=== PATIENT | female | born 1930 | race Caucasian/White ===

== ENCOUNTER 2018-02-24 15:18 | Inpatient (IN) | payer MEDICARE, MEDICAID ==
--- NOTE | 2018-02-24 16:21 | ED Physician Chart ---
ED Chief Complaint/HPI - Patient Information Date Seen:: 02/24/18 Time Seen:: 15:40 Chief Complaint:: Depression History of Present Illness:: onset x 3 days of decreased activity and depressed behvior; pt denies trauma, SIs, H/As, S/T, neck pain, C/P, cough, SOB, Abd. Pain, A/N/V/D/C, fever, chills , or urinary s/s Allergies:: Allergies Allergy/AdvReac Type Severity Reaction Status Date / Time No Known Allergies Allergy Verified 02/24/18 15:40 Vitals:: Vital Signs - 8 hr 02/24/18 15:40 Temp 97.8 F HR 71 RR 19 BP 166/68 O2 Sat % 95 Historian:: Patient, EMS Review:: Nurse's Note Reviewed, Old Chart Reviewed, EMS run form Reviewed ED Review of Systems - Review of Systems General/Constitutional: No fever, No chills, No weight loss, No weakness, No diaphoresis, No edema, No loss of appetite Skin: No skin lesions, No rash, No bruising Head: No headache, No light-headedness Eyes: No loss of vision, No pain, No diplopia ENT: No earache, No nasal drainage, No sore throat, No tinnitus Neck: No neck pain, No swelling, No thyromegaly, No stiffness, No mass noted Cardio Vascular: No chest pain, No palpitations, No PND, No orthopnea, No edema Pulmonary: No SOB, No cough, No sputum, No wheezing GI: No nausea, No vomiting, No diarrhea, No pain, No melena, No hematochezia, No constipation, No hematemesis G/U: No dysuria, No frequency, No hematuria, No nacturia Aitchbone Breaker: No vaginal discharge, No abnormal vaginal bleed, No contraction Musculoskeletal: No bone or joint pain, No back pain, No muscle pain Endocrine: No polyuria, No polydipsia Psychiatric: Prior psych history, Depression, No anxiety, No suicidal ideation, No homicidal ideation, No auditory hallucination, No visual hallucination Hematopoietic: No bruising, No lymphadenopathy Allergic/Immuno: No urticaria, No angioedema Neurological: No syncope, No focal symptoms, No weakness, No paresthesia, No headache, No seizure, No dizziness, Confusion, No vertigo ED Past Medical History - Past Medical History Obtainable: Yes Past Medical History: HTN, Arthritis, Dementia Family History: HTN Social History: Non Smoker, No Alcohol, No Drug Use, Single, Care Facility Surgical History: None Psychiatricy History: Depression, Dementia Medication: Reviewed Family Medical History - Family Member Mother History Unknown: Yes ED Physical Exam - Physical Examination General/Constitutional: Awake, Well-developed, well-nourished, Alert, No distress, GCS 15, Non-toxic appearing, Ambulatory Head: Atraumatic Eyes: Lids, conjuctiva normal, PERRL, EOMI Skin: Nl inspection, No rash, No skin lesions, No ecchymosis, Well hydrated, No lymphadenopathy ENMT: External ears, nose nl, TM canals nl, Nasal exam nl, Lips, teeth, gums nl , Oropharynx nl, Tonsils nl Neck: Nontender, Full ROM w/o pain, No JVD, No nuchal rigidity, No bruit, No mass, No stridor Respiratory: Nl effort/Exclusion, Clear to Auscultation, No Wheeze/Rhonchi/Rales Cardio Vascular: RRR, No murmur, gallop, rubs, NL S1 S2, Carotid/Femoral/Distal pulses equal bilaterally GI: No tenderness/rebounding/guarding, No organomegaly, No hernia, Normal BS's, Nondistended, No mass/bruits, No McBurney tenderness : No CVA tenderness Extremities: No tenderness or effusion, Full ROM, normal strength in all extremities, No edema, Normal digits & nails Neuro/Psych: Alert/oriented, DTR's symmetric, Normal sensory exam, Normal motor strength, Judgement/insight normal, Mood normal, Normal gait, No focal deficits Other Neuro/Psych comments:: + Psychomotor Retardation; no SIs; Mood/Affect: Labile Misc: Normal back, No paraspinal tenderness ED Labs/Radiology/EKG Results - Lab Results Comments:: unremarkable - EKG Interpretations EKG Time:: 16:05 Rate & Rhythm: 76; NSR Comments:: old ASMI; non-specific st-t changes ED Septic Shock - . Is Septic Shock (SBP<90, OR Lactate>4 mmol\L) present?: No - <6hrs of presentation: Vital Signs: Vital Signs - 8 hr 02/24/18 15:40 Temp 97.8 F HR 71 RR 19 BP 166/68 O2 Sat % 95 ED Reassessment (Disposition) - Reassessment Reassessment Condition:: Improved - Diagnosis Diagnosis:: Dx: Depression; Medical Clearance - Aftercare/Follow up Instructions Aftercare/Follow-Up Instructions:: Counseled pt regarding lab results/diagnosis & need follow up, Counseled pt & family regarding lab results/diagnosis & need follow up - Patient Disposition Discharge/Transfer:: Acute Care w/in this hosp Admitted to:: [facility] Condition at Disposition:: Stable, Improved
[2018-02-24 16:28] LABS: % BASOPHILS 1.4 % (0.0-2.0); % MONOCYTES 7.3 % (2.0-10.0); % NEUTROPHILS 67.3 % (40.0-80.0); BASOPHILE ABSOLUTE 0.1 Th/cumm (0-0.2); EOSINOPHILE ABSOLUTE 0.2 Th/cmm (0.1-0.4); LYMPHOCYTE ABSOLUTE 1.3 Th/cmm (1.5-3.0); MEAN CELL VOLUME 89.4 fl (81-100); MEAN CORPUSCULAR HEMOGLOBIN 29.9 pg (27.0-31.0); MEAN CORPUSCULAR HGB CONC 33.4 pg (28.0-36.0); MEAN PLATELET VOLUME 9.3 fl; MONOCYTE ABSOLUTE 0.5 Th/cmm (0.3-1.0); NEUTROPHILE ABSOLUTE 4.3 Th/cmm (1.8-8.0); PLATELET COUNT 193 Th/cmm (150-400); RED BLOOD COUNT 4.36 Mil/cmm (3.80-5.20); RED CELL DISTRIBUTION WIDTH 13.1 % (11.5-20.0); WHITE BLOOD COUNT 6.4 Th/cmm (4.8-10.8)
[2018-02-24 16:48] LABS: ALB/GLOB RATIO 1.2 (1.0-1.8); ALBUMIN 3.9 gm/dL (3.7-5.3); ALKALINE PHOSPHATASE 57 U/L (34-104); BILIRUBIN,TOTAL 0.4 mg/dL (0.3-1.0); BUN - UREA NITROGEN 22 mg/dL (7-25); CALCIUM SERUM 9.8 mg/dL (8.6-10.3); CARBON DIOXIDE 28.8 mEq/L (21.0-31.0); CHLORIDE 104 mEq/L (98-107); CHOLESTEROL 143 mg/dL (<200); CREATININE - SERUM 0.8 mg/dL (0.6-1.2); GLUCOSE 101 mg/dL (70-105); HDL -HIGH DENSITY LIPOPROTEIN 60 mg/dL (23-92); POTASSIUM SERUM 3.8 mEq/L (3.5-5.1); SGOT 13 U/L (13-39); SGPT/ALT 7 U/L (7-52); SODIUM SERUM 140 mEq/L (136-145); TOTAL PROTEIN,SERUM 7.1 gm/dL (6.0-8.3); TRIGLYCERIDES 91 mg/dL (<150)
[2018-02-24 16:55] LABS: ACETAMINOPHEN < 10.0 ug/mL (10.0-30.0); SALICYLATES (ASPIRIN) < 25.0 mg/L (30.0-100.0)
[2018-02-24] MEDS ORDERED: Magnesium Hydroxide (MOM) 30 mL UDC PO PRN (17:55)
[2018-02-24] MEDS ORDERED: Guaifenesin DM 10 ML UDC PO PRN (17:55)
[2018-02-24 18:05] VITALS: BP 152/74
[2018-02-24 19:22] LABS: A1C % 6.3 % (4.0-6.0)
[2018-02-25] MEDS: Levothyroxine 0.075 Mg Tab PO SCH (06:45)
[2018-02-25] MEDS ORDERED: Ferrous Sulfate 325 MG TAB PO SCH (09:00)
[2018-02-25] MEDS: Multivitamin Tab PO SCH (09:37)
[2018-02-25] MEDS: Multivitamin w/ Minerals Tab PO SCH (09:37)
[2018-02-25] MEDS: Aspirin 81mg Chewable Tab PO SCH (09:37)
[2018-02-25] MEDS: Atorvastatin Calcium 10 MG TAB PO SCH (09:37)
--- NOTE | 2018-02-25 10:19 | History & Physical ---
ADMIT DATE: 02/25/2018 PATIENT'S IDENTIFICATION: An 87-year-old female. Requesting physician for this H and P is Dr. Ellison. CHIEF COMPLAINT: "My daughter brought me here." HISTORY OF PRESENT ILLNESS: An 87-year-old female who resides at a [facility] has a diagnosis of hypertension, hyperlipidemia, hypothyroidism, history of dementia, noted by nursing staff that the patient was having period of confusion and increasing lethargy and feeling of hopeless and depressed. The patient has been followed by Dr. Carvalho as well as Dr. Ellison at [facility]. The patient was sent to Emergency Room for further evaluation. After being evaluated by Emergency Room MD, the patient is now being admitted to the hospital for further treatment. PAST MEDICAL HISTORY: Remarkable for: 1. Hypertension. 2. Hyperlipidemia. 3. DJD. 4. Osteoporosis. 5. Hypothyroidism. 6. Osteoporosis. 7. Dementia. 8. Chronic constipation. MEDICATIONS AT HOME: Vitamin C, Tylenol, tramadol, Senna, Pepcid, milk of magnesia, multivitamin, amlodipine, aspirin, atorvastatin, Colace, vitamin B12, Dulcolax, Fleet, ferrous sulfate, hydralazine, levothyroxine. ALLERGIES: The patient is not allergic to medication. SOCIAL HISTORY: The patient lives currently in a alf. The patient had long-term history of smoking, but quit 25 years ago. No history of any alcohol or drug use. FAMILY MEDICAL HISTORY: Remarkable for hypertension. REVIEW OF SYSTEMS: The patient denies any headache, blurred vision, double vision, dysphagia, odynophagia, runny nose, stuffy nose, fever, chills, cough, chest pain, shortness of breath, palpitation, dizziness, nausea, vomiting, diarrhea, dysuria, hematuria, hematochezia, melena, no seizure or syncopal episode. PHYSICAL EXAMINATION: GENERAL: The patient is alert, awake, and answers some question appropriately without any acute distress. VITAL SIGNS: Temperature 99, pulse is 79, respiratory rate is 18, blood pressure 144/77. HEENT: Normocephalic, atraumatic. Extraocular muscles are intact. Bilateral intraocular lens ___ noted. Sclerae without any icterus. Tongue was pink and coated. Multiple absent teeth noted. No oral lesions noted. No sinus tenderness. External auditory canal debridements are well visualized. NECK: Supple, no JVD, no hepatojugular reflux. No lymphadenopathy, thyromegaly, or carotid bruit. HEART: Both heart sounds are regular. Grade 2/6 systolic murmur noted. CHEST: Lung equal in expansion, no wheezing, no crackles. ABDOMEN: Soft. No guarding, no rigidity. Liver and spleen not palpable. No palpable mass. EXTREMITIES: No edema. Peripheral are +1. No calf tenderness noted. Diffuse osteoarthritic changes noted. NEUROLOGIC: Alert, awake, follows command. Mini mental status examinations, patient scored only 10/30. No facial asymmetry noted. Power in upper or lower extremities 5-. Sensation to touch were significantly decreased and lower extremity reflex +2 throughout. Unable to do cerebellar sign. AVAILABLE DIAGNOSTIC DATA: Performed in the Emergency Room, hemoglobin is 13, white count of 6.4, platelet count of 193. Chemistry panels are within normal limit. Glycohemoglobin of 6.3. Liver functions are normal. Cholesterols are normal. Urine toxicology was unremarkable. CLINICAL IMPRESSION: 1. Increasing depression, anxiety with behavioral disturbances. 2. Dementia. 3. Hypertension. 4. Hyperlipidemia. 5. Degenerative joint disease. 6. Osteoporosis. 7. High risk for fall. 8. Gastritis. 9. Decline in self-care and mobility. PLAN: The patient is admitted by Dr. Ellison for psychiatric treatment at this time. The patient will be resumed on her medication for underlying medical illness, which include hypertension, hyperlipidemia, DJD, constipation, as well as GERD, and gastritis. The patient is currently on iron supplement. The patient has normal CBC. We will discontinue iron therapy for now. Fall precaution will be provided as well. General nursing care will be provided as well. We will continue to follow this patient during her stay in the hospital as well. I sincerely thank you, Dr. Ellison, for giving me the opportunity in participating in patient of yours. JOB# [id number]
--- NOTE | 2018-02-25 17:29 | Psychosocial Evaluation ---
DATE OF SERVICE: 02/25/2018 JUSTIFICATION FOR HOSPITALIZATION: Depressed, decreased activity. History of dementia. Concerns for her mood. CHIEF COMPLAINT: "I don't know why I am here." HISTORY OF PRESENT ILLNESS: An 87-year-old female with history of dementia, also depressed behaviors. Vegetative symptoms, decreased activity. The patient attest to depression, sadness. States she is here because "my granddaughter thought I was sick." Confusion noted. She states the year is 1979. She does not know the month or the day of the week. The patient noted to be withdrawn, not the best historian. PAST PSYCHIATRIC HISTORY: Noted dementia, depression. FAMILY HISTORY: Noncontributory. SOCIAL HISTORY: Born in [place]. She states she is . She currently resides at a [facility]. She states she has 3 children. No drugs, alcohol or tobacco. MEDICATIONS: Noted. MENTAL STATUS EXAMINATION: Friendly, calm, fair grooming, confusion noted, disorientation, attests to depression. No overt SI. No psychosis. Insight and judgment diminished. PROVISIONAL DIAGNOSES: Dementia. Also, major depression, recurrent, severe. MEDICAL: Please see full H and P. ESTIMATED LENGTH OF STAY: 5-6 days. ASSESSMENT: The patient is depressed or confused, melancholic withdrawn, sad, withdrawn, concerns about her current condition of depression. PLAN: We will reach out to family. TREATMENT PLAN: Includes group as well as milieu therapy. CONDITIONS FOR DISCHARGE: Improved mood, improved affect, better orientation. [facility]# [id number]
[2018-02-26] MEDS: Levothyroxine 0.075 Mg Tab PO SCH (06:47)
--- NOTE | 2018-02-26 09:13 | General Progress Note ---
Subjective - Review of Systems Subjective: Patient is seen and examined. patient denies chest pain,SOB,nausea,vomiting,headache,fever,chill,cough, seizure. Objective - Results Result Diagrams: 02/24/18 16:19 02/24/18 16: Recent Labs: Laboratory Last Values WBC 6.4 Th/cmm (4.8-10.8) 02/24/18 16: RBC 4.36 Mil/cmm (3.80-5.20) 02/24/18 16: Hgb 13.0 gm/dL (12-16) 02/24/18 16: Hct 39.0 % (41.0-60) L 02/24/18 16: MCV 89.4 fl (81-100) 02/24/18 16: MCH 29.9 pg (27.0-31.0) 02/24/18 16: MCHC Differential 33.4 pg (28.0-36.0) 02/24/18 16: RDW 13.1 % (11.5-20.0) 02/24/18 16: Plt Count 193 Th/cmm (150-400) 02/24/18 16: MPV 9.3 fl 02/24/18 16: Neutrophils % 67.3 % (40.0-80.0) 02/24/18 16: Lymphocytes % 21.0 % (20.0-50.0) 02/24/18 16: Monocytes % 7.3 % (2.0-10.0) 02/24/18 16: Eosinophils % 3.0 % (0.0-5.0) 02/24/18 16: Basophils % 1.4 % (0.0-2.0) 02/24/18 16:19 Sodium 140 mEq/L (136-145) 02/24/18 16:19 Potassium 3.8 mEq/L (3.5-5.1) 02/24/18 16: Chloride 104 mEq/L (98-107) 02/24/18 16:19 Carbon Dioxide 28.8 mEq/L (21.0-31.0) 02/24/18 16:19 Anion Gap 11.0 (7.0-16.0) 02/24/18 16:19 BUN 22 mg/dL (7-25) 02/24/18 16:19 Creatinine 0.8 mg/dL (0.6-1.2) 02/24/18 16:19 Est GFR ( Amer) TNP 02/24/18 16:19 Est GFR (Non-Af Amer) TNP 02/24/18 16:19 BUN/Creatinine Ratio 27.5 02/24/18 16:19 Glucose 101 mg/dL (70-105) 02/24/18 16:19 Hemoglobin A1c % 6.3 % (4.0-6.0) H 02/24/18 16:19 Calcium 9.8 mg/dL (8.6-10.3) 02/24/18 16:19 Total Bilirubin 0.4 mg/dL (0.3-1.0) 02/24/18 16:19 AST 13 U/L (13-39) 02/24/18 16:19 ALT 7 U/L (7-52) 02/24/18 16:19 Alkaline Phosphatase 57 U/L (34-104) 02/24/18 16:19 Total Protein 7.1 gm/dL (6.0-8.3) 02/24/18 16:19 Albumin 3.9 gm/dL (3.7-5.3) 02/24/18 16:19 Globulin 3.2 gm/dL 02/24/18 16:19 Albumin/Globulin Ratio 1.2 (1.0-1.8) 02/24/18 16:19 Triglycerides 91 mg/dL (<150) 02/24/18 16:19 Cholesterol 143 mg/dL (<200) 02/24/18 16:19 LDL Cholesterol Direct 66 mg/dL (75-193) L 02/24/18 16:19 HDL Cholesterol 60 mg/dL (23-92) 02/24/18 16:19 TSH 2.86 uIU/ml (0.34-5.60) 02/24/18 16:19 Salicylates < 25.0 mg/L (30.0-100.0) L 02/24/18 16:19 Acetaminophen < 10.0 ug/mL (10.0-30.0) L 02/24/18 16:19 Ethyl Alcohol < 10 mg/dL (0-10) 02/24/18 16:19 - Physical Exam Vitals and I&O: Vital Signs Temp 98 F 02/25/18 15:36 Pulse 68 02/25/18 16:47 Resp 20 02/25/18 15:36 BP 128/62 02/25/18 16:47 Pulse Ox 96 02/25/18 15:36 Active Medications: Current Medications Acetaminophen (Tylenol) 650 mg PO Q4HR PRN PRN Reason: Pain (Mild) Stop: 04/25/18 17:54 Amlodipine Besylate (Norvasc) 5 mg PO BID NOELLE Stop: 04/26/18 08:59 Last Admin: 02/25/18 16:47 Dose: 5 mg Ascorbic Acid (Vitamin C) 500 mg PO BID NOELLE Stop: 04/26/18 08:59 Last Admin: 02/25/18 16:47 Dose: 500 mg Aspirin (Aspirin Chewable) 81 mg PO DAILY NOELLE Stop: 04/26/18 08:59 Last Admin: 02/25/18 09:37 Dose: 81 mg Atorvastatin Calcium (Lipitor) 10 mg PO DAILY NOELLE PRN Reason: Protocol Stop: 04/26/18 08:59 Last Admin: 02/25/18 09:37 Dose: 10 mg Bisacodyl (Dulcolax 10 Mg Supp) 10 mg RC Q24H PRN PRN Reason: Constipation Stop: 04/25/18 17:54 Cyanocobalamin (Vitamin B12) 1,000 mcg PO DAILY [facility] Stop: 04/26/18 08:59 Last Admin: 02/25/18 09:37 Dose: 1,000 mcg Docusate Sodium (Colace) 100 mg PO BID NOELLE Stop: 04/26/18 08:59 Last Admin: 02/25/18 16:47 Dose: 100 mg Famotidine (Pepcid) 20 mg PO BID NOELLE Stop: 04/26/18 08:59 Guaifenesin/Dextromethorphan (Robitussin Dm) 10 ml PO Q6HR PRN PRN Reason: Cough Stop: 04/25/18 17:54 Hydralazine HCl (Apresoline) 10 mg PO Q6H PRN PRN Reason: HTN Stop: 04/25/18 17:54 Levothyroxine Sodium (Synthroid) 0.075 mg PO QDAC NOELLE Stop: 04/26/18 07:29 Last Admin: 04/20/18 06:47 Dose: 0.075 mg Lorazepam (Ativan) 0.5 mg PO Q4HR PRN; Protocol PRN Reason: Anxiety Stop: 03/26/18 18:01 Magnesium Hydroxide (Milk Of Magnesia) 30 ml PO Q24H PRN PRN Reason: Constipation Stop: 04/25/18 17:54 Multivitamins/Vitamin C (Theragran) 1 tab PO DAILY NOELLE Stop: 04/26/18 08:59 Last Admin: 02/25/18 09:37 Dose: 1 tab Senna (Senna) 8.6 mg PO BID NOELLE Stop: 04/26/18 08:59 Last Admin: 02/25/18 16:47 Dose: 8.6 mg Tramadol HCl (Ultram) 25 mg PO Q6H PRN PRN Reason: MOD/SEVERE PAIN Stop: 04/25/18 17:54 Zolpidem Tartrate (Ambien) 5 mg PO HS PRN PRN Reason: Insomnia Stop: 04/25/18 18:01 General: Alert, Cooperative, No acute distress HEENT: Atraumatic, PERRLA, EOMI Neck: Supple, JVD, Thyromegaly, +2 carotid pulse wo bruit Cardiovascular: Regular rate, Normal S1, Normal S2 Lungs: Clear to auscultation, Normal air movement Abdomen: Soft, Tender Extremities: Other (No edema,Diffuse DJD changes.) Neurological: Normal speech, Other (decrease power throughout.) Assessment/Plan - Problem List Patient Problems: All Active Problems DEPRESSION, CONFUSION (Acute) - Assessment Assessment: Hypertension. Hyperlipedemia. DJD. Osteoporosis. Gastritis. Psych disorder. Fall risk. Hypothyrodism. - Plan Plan: Monitor vitals and lab. Fall precautions. General nursing care. Statin. Synthroid. Anti HTN meds. Continue current care. Symptoms management medication management. discussed with staff.
[2018-02-26] MEDS: Multivitamin w/ Minerals Tab PO SCH (09:51)
[2018-02-26] MEDS: Aspirin 81mg Chewable Tab PO SCH (09:51)
[2018-02-26] MEDS: Multivitamin Tab PO SCH (09:52)
[2018-02-26] MEDS: Atorvastatin Calcium 10 MG TAB PO SCH (09:52)
--- NOTE | 2018-02-27 03:48 | Progress Notes ---
DATE: 02/26/2018 SUBJECTIVE: The patient is here due to depression. History of dementia. On [id number], the patient remains withdrawn, still depressed. She knows that she has bouts of depression and sadness. She notes she is feeling somewhat better, more optimistic. She feels that her granddaughter put her here, "She thought I was depressed, but I am not really depressed." However, she has been isolative. Concerns for depression. Vegetative symptoms. The patient engaged on exam, somewhat more sociable. Sleeping fairly well, eating fairly well. ADLs. Medications were noted. ASSESSMENT: The patient seems to be showing some improvement, more optimistic, more engaged. We will monitor and follow up. No SI. We will reach out the granddaughter today. [facility]# [id number]
[2018-02-27] MEDS: Levothyroxine 0.075 Mg Tab PO SCH (06:37)
[2018-02-27] MEDS: Multivitamin w/ Minerals Tab PO SCH (09:09)
[2018-02-27] MEDS: Atorvastatin Calcium 10 MG TAB PO SCH (09:09)
[2018-02-27] MEDS: Aspirin 81mg Chewable Tab PO SCH (09:09)
[2018-02-27] MEDS: Multivitamin Tab PO SCH (09:13)
--- NOTE | 2018-02-27 23:01 | Progress Notes ---
DATE: 02/27/2018 SUBJECTIVE: The patient seems to be in better spirits, more optimistic. No SI, no HI. She remained somewhat withdrawn, but states she is feeling "better". Sleeping well, eating well. I spoke with granddaughter yesterday she would like the patient transferred closer to her so that she can spend more time with the patient. The patient is depressed due to isolation, no family support nearby. ASSESSMENT: The patient is improving. No SI, no HI, better spirits. PLAN: internet project manager is working on a safe discharge plan. JOB# [id number]
[2018-02-28] MEDS: Levothyroxine 0.075 Mg Tab PO SCH (06:43)
[2018-02-28] MEDS: Aspirin 81mg Chewable Tab PO SCH (09:05)
[2018-02-28] MEDS: Atorvastatin Calcium 10 MG TAB PO SCH (09:05)
[2018-02-28] MEDS: Multivitamin Tab PO SCH (09:06)
[2018-02-28] MEDS: Multivitamin w/ Minerals Tab PO SCH (09:06)
--- NOTE | 2018-02-28 20:46 | Progress Notes ---
DATE: 02/28/2018 SUBJECTIVE: The patient in fair spirits. Sleeping well, eating well, getting along fairly well with staff and peers. No agitation, no escalation of behaviors. No distress noted. Mild disorientation noted, some forgetfulness. The patient is still grieving the loss of best friend and also sister. MEDICATIONS: Noted including doses and frequencies. The patient is eating well, sleeping well. ASSESSMENT: The patient seems to be improving, likely bereavement, granddaughter trying to get her closer to her home in [facility]. We will continue to monitor and follow up. No overt SI or HI, still with some bouts of sadness. JOB# [id number]
[2018-03-01] MEDS: Levothyroxine 0.075 Mg Tab PO SCH (07:06)
[2018-03-01] MEDS: Atorvastatin Calcium 10 MG TAB PO SCH (08:26)
[2018-03-01] MEDS: Aspirin 81mg Chewable Tab PO SCH (08:26)
[2018-03-01] MEDS: Multivitamin w/ Minerals Tab PO SCH (08:26)
[2018-03-01] MEDS: Multivitamin Tab PO SCH (08:26)
--- NOTE | 2018-03-01 10:53 | Progress Notes ---
DATE: 03/01/2018 The patient is in fair spirits, better oriented, allowing ADLs. No agitation. No escalation of behaviors. Still noted to be somewhat forgetful, but appropriate on exam. The patient is cooperative, allowing ADLs, wanting to leave soon. We are working hard on placement and I am in touch with granddaughter. Medications were noted. ASSESSMENT: The patient seems to be improving, calmer, more cooperative, no SI. PLAN: We will continue to monitor, continue to address any underlying depression. We will coordinate care with social work regarding safe discharge plan, good psychiatric followup. We will also try to confirm placement. JOB# [id number]
--- NOTE | 2018-03-02 00:08 | Progress Notes ---
DATE: 03/01/2018 IDENTIFICATION: An 87-year-old female. SUBJECTIVE: The patient was seen and examined. The patient is lying in the bed. Denies any chest pain, shortness of breath, palpitation, dizziness, nausea, vomiting. PHYSICAL EXAMINATION: VITAL SIGNS: Today's exam, temperature 97.5, pulse 84, respiratory rate 18, blood pressure 158/75. HEENT: No facial asymmetry. Poor dentition noted. NECK: Supple, no JVD. HEART: Both heart sounds are regular. CHEST: Lung equal in expansion. LUNGS: No wheezing, no crackles. ABDOMEN: Soft. No guarding, no rigidity. Bowel sounds are present. No palpable mass. EXTREMITIES: No edema. Diffuse osteoarthritic changes involving upper and lower extremity in major and minor joints noted. CLINICAL IMPRESSION: 1. Hypertension. 2. Hyperlipidemia. 3. Degenerative joint disease. 4. Osteoporosis. 5. Hypothyroidism. 6. Dementia. 7. Chronic constipation. 8. Gastritis. 9. Psychotic disorder. PLAN: 1. Psychotic evaluation and management defer to psychiatrist. 2. Continue her antihypertensive and statin medication for the hypertension and hyperlipidemia. 3. Fall precautions. 4. Pepcid. 5. General nursing care. 6. The patient is medically stable for psychiatric treatment at [facility]. JOB# [id number]
[2018-03-02] MEDS: Levothyroxine 0.075 Mg Tab PO SCH (06:32)
[2018-03-02] MEDS: Aspirin 81mg Chewable Tab PO SCH (09:06)
[2018-03-02] MEDS: Atorvastatin Calcium 10 MG TAB PO SCH (09:06)
[2018-03-02] MEDS: Multivitamin Tab PO SCH (09:08)
[2018-03-02] MEDS: Multivitamin w/ Minerals Tab PO SCH (09:08)
--- NOTE | 2018-03-02 19:39 | Discharge Summary ---
DATE OF DISCHARGE: 03/02/2018 JUSTIFICATION FOR HOSPITALIZATION: Depressed. History of dementia. HISTORY OF PRESENT ILLNESS: An 87-year-old female with history of dementia, depressed behaviors, decreased activity. The patient upset. Recent deaths in the family, is far away from granddaughter. PAST PSYCHIATRIC HISTORY: Dementia, depression. SOCIAL HISTORY: Born in [place]. Resides [place], 3 children. Granddaughter very involved. MENTAL STATUS EXAMINATION: Please see full psych eval for details. PROVISIONAL DIAGNOSES: Dementia, also major depression. MEDICAL: Please see full H and P. HOSPITAL COURSE: After initial assessment, the patient continued on medications, improved, more hopeful, more motivated, wants to live near granddaughter. Granddaughter making efforts to get closer to her. I spoke with the granddaughter over the phone. Over the course of the hospitalization, she improved, mood improved, affect improved, getting along well with staff and peers, some disorientation noted. No SI, more sociable and engaged. CONDITION ON DISCHARGE: Improved. Good ADLs, good eye contact. Speech within normal limits. Mood "better." Affect bright and broad. Thought processes were awake, alert, mild disorientation, but engaged, no SI, no HI. No psychosis. Better insight. PROVISIONAL DIAGNOSIS: Dementia per history. Also, major depression, recurrent, unspecified. MEDICAL: Please see full H and P. PROGNOSIS: The patient follows up with outpatient mental health services and eventually was closer to granddaughter. Prognosis will improve, otherwise guarded. [facility]# [id number]
== END 2018-03-02 17:00 | DRG 885 ==
LOC: ER 15:18 → GERO2 16:40
PROVIDERS: ADMIT Psychiatry & Neurology Psychiatry; ATTEND Psychiatry & Neurology Psychiatry
DX: F33.9 Major depressive disorder, recurrent, unspecified (principal); F03.91 Unspecified dementia, unspecified severity, with behavioral disturbance; K29.70 Gastritis, unspecified, without bleeding; I10 Essential (primary) hypertension; M19.90 Unspecified osteoarthritis, unspecified site; E78.5 Hyperlipidemia, unspecified; E03.9 Hypothyroidism, unspecified; M81.0 Age-related osteoporosis without current pathological fracture; K59.09 Other constipation; K21.9 Gastro-esophageal reflux disease without esophagitis; F41.9 Anxiety disorder, unspecified; Z91.81 History of falling; Z87.891 Personal history of nicotine dependence; Z82.49 Family history of ischemic heart disease and other diseases of the circulatory system
CPT/HCPCS: 36415-UA; 80053-TC; 80061-TC; 80320-TC; 80329-TC; 83036-90; 84443-TC; 85025-TC; 86592-TC; 93005; Z7610